=== PATIENT | female | born 1955 | race Two or more races ===

== ENCOUNTER 2022-03-29 09:42 | Emergency (ER) | payer MEDICARE, MEDICAID ==
--- NOTE | 2022-03-29 10:39 | XRAY Report ---
PROCEDURE: Chest 1 View X-Ray INDICATIONS: Chest pain TECHNIQUE: One view of the chest was acquired. COMPARISON: None. FINDINGS: Surgical changes and devices: None. Lungs and pleura: No pleural effusions or pneumothorax. Lungs are clear. Mediastinum: Mediastinal contours appear normal. Heart size is normal. Bones and chest wall: No suspicious bony lesions. Overlying soft tissues appear unremarkable. IMPRESSION: No acute pulmonary process. Reviewed by: Suzie Pruitt MD on 03/29/2022 10:38 AM [facility] Approved by: Suzie Pruitt MD on 03/29/2022 10:38 AM [facility] Station ID: [id number]
[2022-03-29 11:05] LABS: BASOPHILS # (AUTO) 0.1 10^3/uL (0.0-0.1); BASOPHILS % (AUTO) 0.5 %; EOSINOPHILS # (AUTO) 0.2 10^3/uL (0.0-0.7); EOSINOPHILS % (AUTO) 1.6 %; HCT - HEMATOCRIT 39.3 % (37.0-47.0); HGB - HEMOGLOBIN 12.7 g/dL (12.0-16.0); LYMPHOCYTES # (AUTO) 1.4 10^3/uL (1.5-3.5); LYMPHOCYTES % (AUTO) 13.5 %; MEAN CORPUSCULAR HEMOGLOBIN 28.9 pg (27.0-31.0); MEAN CORPUSCULAR HGB CONC 32.3 g/dL (32.0-36.0); MEAN CORPUSCULAR VOLUME 89.5 fL (81.0-99.0); MEAN PLATELET VOLUME 11.1 fL (7.9-10.8); MONOCYTES # (AUTO) 0.7 10^3/uL (0.0-1.0); MONOCYTES % (AUTO) 6.8 %; NEUTROPHILS # (AUTO) 8.2 10^3/uL (1.5-6.6); PLT - PLATELET COUNT 191 10^3/uL (130-450); RED BLOOD COUNT 4.39 10^6/uL (4.20-5.40); RED CELL DISTRIBUTION WIDTH 13.1 % (12.0-15.0); WHITE BLOOD COUNT 10.7 x10^3/uL (4.8-10.8)
[2022-03-29 11:12] LABS: ALBUMIN/GLOBULIN RATIO 1.2 (1.0-2.2); BILIRUBIN,TOTAL 0.8 mg/dL (0.2-1.0); CREATININE 1.1 mg/dL (0.4-1.0); POTASSIUM 3.4 mmol/L (3.5-5.0); TOTAL PROTEIN 7.3 g/dL (6.7-8.2)
[2022-03-29 14:22] LABS: B. PARAPERTUSSIS- RESP PCR PAN NOT DETECTED; B. PERTUSSIS- RESP PCR PANEL NOT DETECTED; C. PNEUMONIAE- RESP PCR PANEL NOT DETECTED; CORONAVIRUS 229E-RESP PCR NOT DETECTED; CORONAVIRUS HKU1-RESP PCR NOT DETECTED; CORONAVIRUS NL63-RESP PCR NOT DETECTED; CORONAVIRUS OC43-RESP PCR NOT DETECTED; HUMAN METAPNEUMOVIRUS NOT DETECTED; INFLUENZA A- RESP PCR PANEL NOT DETECTED; INFLUENZA B - RESP PCR PANEL NOT DETECTED; M. PNEUMONIAE- RESP PCR PANEL NOT DETECTED; PARAINFLUENZA VIRUS 1 NOT DETECTED; PARAINFLUENZA VIRUS 2 NOT DETECTED; PARAINFLUENZA VIRUS 3 NOT DETECTED; PARAINFLUENZA VIRUS 4 NOT DETECTED; RHINOVIRUS/ENTEROVIRUS NOT DETECTED; RSV- RESP PCR PANEL NOT DETECTED; SARS-CoV-2 -RESP PCR PANEL NOT DETECTED
[2022-03-29] MEDS ORDERED: SODIUM CHLORIDE 0.9% 1,000 ML IV STA (14:24)
[2022-03-29 14:36] LABS: BILIRUBIN,URINE NEGATIVE (NEGATIVE); GLUCOSE, URINE (UA) NEGATIVE (NEGATIVE); KETONES,URINE (UA) NEGATIVE (NEGATIVE); LEUKOCYTE ESTERASE, URINE TRACE (NEGATIVE); NITRITE,URINE NEGATIVE (NEGATIVE); OCCULT BLOOD,URINE SMALL (NEGATIVE); PH,URINE 6.5 PH (5.0-7.5); PROTEIN,URINE NEGATIVE (NEGATIVE); UROBILINOGEN,URINE 0.2 (NORMAL) E.U./dL (NORMAL)
[2022-03-29 14:41] LABS: CLARITY,URINE CLEAR (CLEAR)
[2022-03-29 14:47] LABS: RBC,URINE 0-5 /HPF (0-5); WBC,URINE 0-3 /HPF (0-5)
[2022-03-29 14:48] LABS: BACTERIA,URINE Few /HPF (None Seen); SQUAMOUS EPITHELIAL CELL,UR FEW Squamous (<= Few)
--- NOTE | 2022-03-29 14:53 | ED Physician Documentation ---
History of Present Illness - Stated complaint Stated Complaint: BODY ACHES - Chief complaint Chief Complaint: Cardiac - Additonal information Additional information: 66-year-old female presents to the emergency department for evaluation of f ainting episode, fevers body aches and shakes that began 2 days ago. She has had no nausea or vomiting. Reports she urinated this morning and when she was returning to her bed she fainted. She does have a previous history of cardiac stenting. She reports a very brief episode of chest pain this morning prior to fainting. Patient denies dysuria or frequency but states that when she was in [place] she frequently had urinary tract infections. Denies any recent sexual intercourse. Meds: Nifedipine, atorvastatin, losartan, metformin, as needed Tylenol PD PAST MEDICAL HISTORY - Present Medications Home Medications: Ambulatory Orders Medication Instructions Recorded Confirmed Nitrofurantoin [Macrobid] 100 mg PO BID #14 cap 03/29/22 - Allergies Allergies/Adverse Reactions: Allergies Allergy/AdvReac Type Severity Reaction Status Date / Time No Known Drug Allergies Allergy Verified 03/29/22 10:06 Results - Vitals Vitals: Vital Signs - 24 hr 03/29/22 03/29/22 03/29/22 10:00 13:11 15:00 Temperature 38.1 C H 37.2 C 36.5 C Heart Rate 93 86 80 Heart Rate [ Sitting] Heart Rate [ Standing] Heart Rate [ Supine] Respiratory 28 H 20 15 Rate Blood Pressure 130/53 L 123/58 L 133/57 H Blood Pressure [Sitting] Blood Pressure [Standing] Blood Pressure [Supine] O2 Saturation 98 98 96 03/29/22 15:52 Temperature Heart Rate Heart Rate [ 85 Sitting] Heart Rate [ 89 Standing] Heart Rate [ 84 Supine] Respiratory Rate Blood Pressure Blood Pressure 140/71 H [Sitting] Blood Pressure 129/76 [Standing] Blood Pressure 131/86 H [Supine] O2 Saturation Oxygen O2 Source Room air - EKG (time done) 1014 Rate: Rate (enter#) (90) Rhythm: NSR [place]: Normal Intervals: Normal MD QRS: Normal, Poor R wave progression Compare to prior EKG: Old EKG unavailable Computer interpretation: Agree with computer - Labs Labs: Laboratory Tests 03/29/22 03/29/22 03/29/22 10:50 10:50 10:50 WBC 10.7 RBC 4.39 Hgb 12.7 Hct 39.3 MCV 89.5 MCH 28.9 MCHC 32.3 RDW 13.1 Plt Count 191 MPV 11.1 H Neut # (Auto) 8.2 H Lymph # (Auto) 1.4 L [place] # (Auto) 0.7 Eos # (Auto) 0.2 Baso # (Auto) 0.1 Absolute Nucleated RBC 0.00 Nucleated RBC % 0.0 Sodium 129 L Potassium 3.4 L Chloride 94 L Carbon Dioxide 24 Anion Gap 11.0 BUN 15 Creatinine 1.1 H Estimated GFR (MDRD) 50 L Glucose 221 H Calcium 9.0 Total Bilirubin 0.8 AST 24 ALT 19 Alkaline Phosphatase 64 Troponin I High Sens 8.9 Total Protein 7.3 Albumin 4.0 Globulin 3.3 Albumin/Globulin Ratio 1.2 Lipase 42 Urine Color Urine Clarity Urine pH Ur Specific [place] Urine Protein Urine Glucose (UA) Urine Ketones Urine Occult Blood Urine Nitrite Urine Bilirubin Urine Urobilinogen Ur Leukocyte Esterase Urine RBC Urine WBC Ur Squamous Epith Cells Urine Bacteria Ur Microscopic Review Urine Culture Comments Nasal Adenovirus (PCR) Nasal B. parapertussis DNA (PCR) Nasal Coronavir 229E PCR Nasal Coronavir HKU1 PCR Nasal Coronavir NL63 PCR Nasal Coronavir OC43 PCR Nasal Enterovir/Rhinovir PCR Nasal Influenza B PCR Nasal Influenza A PCR Nasal Parainfluen 1 PCR Nasal Parainfluen 2 PCR Nasal Parainfluen 3 PCR Nasal Parainfluen 4 PCR Nasal RSV (PCR) Nasal B.pertussis DNA PCR Nasal C.pneumoniae (PCR) Gerardo Human Metapneumo PCR Nasal M.pneumoniae (PCR) Nasal SARS-CoV-2 (PCR) 03/29/22 03/29/22 03/29/22 13:09 14:28 14:40 WBC RBC Hgb Hct MCV MCH MCHC RDW Plt Count MPV Neut # (Auto) Lymph # (Auto) [place] # (Auto) Eos # (Auto) Baso # (Auto) Absolute Nucleated RBC Nucleated RBC % Sodium Potassium Chloride Carbon Dioxide Anion Gap BUN Creatinine Estimated GFR (MDRD) Glucose Calcium Total Bilirubin AST ALT Alkaline Phosphatase Troponin I High Sens 8.4 Total Protein Albumin Globulin Albumin/Globulin Ratio Lipase Urine Color YELLOW Urine Clarity CLEAR Urine pH 6.5 Ur Specific [place] 1.010 Urine Protein NEGATIVE Urine Glucose (UA) NEGATIVE Urine Ketones NEGATIVE Urine Occult Blood SMALL H Urine Nitrite NEGATIVE Urine Bilirubin NEGATIVE Urine Urobilinogen 0.2 (NORMAL) Ur Leukocyte Esterase TRACE H Urine RBC 0-5 Urine WBC 0-3 Ur Squamous Epith Cells FEW Squamous Urine Bacteria Few Ur Microscopic Review INDICATED Urine Culture Comments INDICATED Nasal Adenovirus (PCR) NOT DETECTED Nasal B. parapertussis DNA (PCR) NOT DETECTED Nasal Coronavir 229E PCR NOT DETECTED Nasal Coronavir HKU1 PCR NOT DETECTED Nasal Coronavir NL63 PCR NOT DETECTED Nasal Coronavir OC43 PCR NOT DETECTED Nasal Enterovir/Rhinovir PCR NOT DETECTED Nasal Influenza B PCR NOT DETECTED Nasal Influenza A PCR NOT DETECTED Nasal Parainfluen 1 PCR NOT DETECTED Nasal Parainfluen 2 PCR NOT DETECTED Nasal Parainfluen 3 PCR NOT DETECTED Nasal Parainfluen 4 PCR NOT DETECTED Nasal RSV (PCR) NOT DETECTED Nasal B.pertussis DNA PCR NOT DETECTED Nasal C.pneumoniae (PCR) NOT DETECTED Gerardo Human Metapneumo PCR NOT DETECTED Nasal M.pneumoniae (PCR) NOT DETECTED Nasal SARS-CoV-2 (PCR) NOT DETECTED PD Medical Decision Making - ED course Complexity details: reviewed results, re-evaluated patient, considered differential, d/w patient ED course: 66-year-old female presents emergency department for evaluation of multiple days fevers, Rigors and chills. No cough abdominal pain or vomiting. She has taken some ibuprofen and tylenol with temporary relief of symptoms. This morning she was in the bathroom urinating and when she was walking back to her bed she did faint. She reported a brief episode of CP earlier this morning. Here in the emergency department we did obtain a CBC that he my review shows no leukocytosis. No worrisome anemia. Her electrolytes were without acute findings. On exam of the urine there is a moderate amount of bacteria and leukocyte esterase. A culture is pending. Her EKG was nonischemic. Troponin completed about 4 hours after the chest pain and fainting event was negative. 1 troponin should suffice to rule out ACS. Chest x-ray without acute findings to suggest a pneumonia, pleural effusion or volume overload. We did obtain orthostatics today in the emergency department and they are negative. Respiratory PCR was also negative. I suspect that the cause of the symptoms and persistent rigors and low-grade temperature elevation may be a mild urinary tract infection. She will be started on Macrobid. This prescription was being sent to the [facility]. We did discuss the usual emergent return precautions. Departure - Departure Disposition: 01 Home, Self Care Clinical Impression: Syncope Qualifiers: Syncope type: unspecified Qualified Code(s): R55 - Syncope and collapse Fatigue Qualifiers: Fatigue type: unspecified Qualified Code(s): R53.83 - Other fatigue Condition: Stable Record reviewed to determine appropriate education?: Yes Prescriptions: Nitrofurantoin [Macrobid] 100 mg PO BID #14 cap Comments: You came into the emergency department because for few days you have been having shakes and chills at home. You have had a low-grade temperature elevation. Here in the emergency department your chest x-ray was normal. Your labs are all essentially normal. Your urine does suggest a very mild and early urinary tract infection. I sent prescription for Macrobid and antibiotic to the [facility] in [place]. I would expect you to be feeling better over the next 48 to 72 hours. If you are not feeling better, your symptoms worsen, you have uncontrolled abdominal pain or vomiting then please return immediately to the ER for second evaluation
[2022-03-29 16:55] VITALS: BP 129/54
== END 2022-03-29 16:54 | disposition home or self-care (01) ==
LOC: ED 09:42
DX: R55 Syncope and collapse (principal); R53.83 Other fatigue; Z20.822 Contact with and (suspected) exposure to COVID-19
CPT/HCPCS: 36415; 80053; 81001; 81003; 83690; 84484; 85025; 87086; 87633; 93005; 96360; 99284